=== PATIENT | male | born 2000 | race African-American/Black ===

== ENCOUNTER 2024-01-29 11:47 | Emergency (ER) | payer MEDICAID ==
[~2024-01-29] VITALS: Ht 182.9 cm; Wt 75.0 kg
[2024-01-29 11:50] VITALS: PULSE 91; RESP 18
[2024-01-29 11:53] VITALS: BP 125/76; TEMP 98.5; O2SAT 99
== END 2024-01-29 12:03 | disposition left against medical advice (07) ==
LOC: ER 11:47
DX: M54.6 Pain in thoracic spine (principal); Z53.21 Procedure and treatment not carried out due to patient leaving prior to being seen by health care provider